=== PATIENT | female | born 1945 | race Caucasian/White ===

== ENCOUNTER 2018-11-07 12:39 | Inpatient (IN) ==
[2018-11-07] MEDS ORDERED: DUONEB 0.5 MG/3 MG ONE (13:11)
[2018-11-07] MEDS ORDERED: TUSSIONEX PENNKINETIC SUSP PO PRN (13:13)
[2018-11-07] MEDS ORDERED: DUONEB 0.5 MG/3 MG NEB ONE (13:15)
[2018-11-07 13:40] LABS: BASOPHILS # (AUTO) 0.1 X10^3/uL (0.0-0.1); BASOPHILS % (AUTO) 0.6 % (0.2-1.0); EOSINOPHILS # (AUTO) 0.1 x10^3/uL (0.0-0.2); EOSINOPHILS % (AUTO) 0.3 % (0.9-2.9); HEMATOCRIT 33.1 % (36.0-47.0); HEMOGLOBIN 10.8 g/dL (12.0-16.0); LYMPHOCYTES # (AUTO) 2.1 X10^3/uL (1.3-2.9); LYMPHOCYTES % (AUTO) 9.9 % (21.0-51.0); MEAN CORPUSCULAR HEMOGLOBIN 28.9 pg (27.0-34.0); MEAN CORPUSCULAR HGB CONC 32.7 g/dL (33.0-35.0); MEAN CORPUSCULAR VOLUME 88.4 fL (80.0-100.0); MEAN PLATELET VOLUME 9.8 fL (7.4-11.0); MONOCYTES % (AUTO) 9.7 % (0.0-13.0); NEUTROPHILS # (AUTO) 16.6 x10^3/uL (2.2-4.8); NEUTROPHILS % (AUTO) 79.5 % (42.0-75.0); PLATELET COUNT 316 X10^3/uL (150.0-450.0); RED BLOOD COUNT 3.74 X10^6/uL (3.5-5.4); RED CELL DISTRIBUTION WIDTH 13.7 % (11.6-16.5); WHITE BLOOD COUNT 20.8 X10^3/uL (3.6-10.0)
--- NOTE | 2018-11-07 13:45 | DR.GENAD ---
HPI Time Seen Time Seen by Provider: 11/07/18 13:38 PCP Primary Care Physician: cesilia Complaint/Symptoms Chief Complaint Doctors Comments: 73 y/o female with dyspnea and cough x 2 weeks. She is wheezing. Chief Complaint:: pt has been short of breath, dizzy, vomiting, chills, for 2 weeks. stated she woke up this morning with right ankle pain Source History Provided: Patient and Family Member Mode of Arrival Mode of Arrival: Wheelchair Timing Onset of Chief Complaint: 10/24/18 PMH PMH Past Medical History: Yes Past Medical History: Asthma, COPD, Diabetes, Dyslipidemia, GERD, Hypertension and Renal Disease Past Surgical History: Yes Surgical History: , Cholecystectomy and Ortho Surgery Family History History of Family Medical Conditions: No Social History Does patient currently use any type of tobacco product: No Have you used tobacco products in the last 12 months: No Type of Tobacco Use: None Does any household member use tobacco: No Alcohol Use: None Do you use any recreational Drugs:: No Lives With: Family Lives Where: Home infectious screening In the last 2 months have you had wt loss of >10#?: NO Have you had fever, night sweats or hemotysis?: No Have you traveled outside the country in the last 6 months?: No Isolation: Standard ROS Review of Systems Constitutional: No Symptoms Reported Eyes: No Symptoms Reported ENTM: No Symptoms Reported Respiratoy: Productive Cough, Short of Breath and Wheezing Cardiovascular: No Symptoms Reported Gastrointestinal/Abdominal: No Symptoms Reported Genitourinary: No Symptoms Reported Neurological: No Symptoms Reported Musculoskeletal: No Symptoms Reported Integumentary: No Symptoms Reported Hematologic/Lymphatic: No Symptoms Reported Endocrine: No Symptoms Reported Psychiatric: No Symptoms Reported PE Vital Signs Vitals: Pulse Rate 106 Respiratory Rate 18 Blood Pressure 142/80 O2 Sat by Pulse Oximetry 100 General Limitations: No Limitations General Appearance: Alert and In No Apparent Distress Head Head Exam: Normal Inspection, Atraumatic and Normocephalic Eyes Eye exam: Normal Appearance and EOMI ENT ENT Exam: Normal Exam, Normal Oropharynx and Mucous Membranes Moist Neck Neck Exam: Normal Inspection, Full ROM and Trachea Midline Chest Chest Inspection: Normal Inspection and Symmetric Chest Wall Rise Respiratory Respiratory Exam: Bilateral: Wheezing, Bilateral: Rhonchi and Bilateral: Decreased Breath Sounds Cardiovascular Cardiovascular Exam: Regular Rate, Normal Rhythm, +S1 and +S2 Abdominal Exam Abdominal Exam: Normal Inspection, Normal Bowel Sounds and Soft Extremities Extremities Exam: Normal Inspection Back Back Exam: Normal Inspection Neurologic Neurological Exam: Alert and Oriented X3 Psychiatric Psychiatric Exam: Normal Affect Skin Skin Exam: Warm, Dry and Normal Color COURSE Reevaluation 1st: Improved Education/Counseling Education/Counseling: Patient, Family, Education and Counseling Educated On: Treatment, Diagnosis, Prognosis and Needs for Follow Up ROR Labs Reviewed Result Diagrams: 11/07/18 13:22 11/07/18 13:22 Laboratory: WBC 20.8 X10^3/uL (3.6-10.0) H 11/07/18 13:22 RBC 3.74 X10^6/uL (3.5-5.4) 11/07/18 13:22 Hgb 10.8 g/dL (12.0-16.0) L 11/07/18 13:22 Hct 33.1 % (36.0-47.0) L 11/07/18 13:22 MCV 88.4 fL (80.0-100.0) 11/07/18 13:22 MCH 28.9 pg (27.0-34.0) 11/07/18 13:22 MCHC 32.7 g/dL (33.0-35.0) L 11/07/18 13:22 RDW 13.7 % (11.6-16.5) 11/07/18 13:22 Plt Count 316 X10^3/uL (150.0-450.0) 11/07/18 13:22 Plt Count Comment Adequate (ADEQUATE) 11/07/18 13:22 MPV 9.8 fL (7.4-11.0) 11/07/18 13:22 Neut % (Auto) 79.5 % (42.0-75.0) H 11/07/18 13:22 Lymph % (Auto) 9.9 % (21.0-51.0) L 11/07/18 13:22 [place] % (Auto) 9.7 % (0.0-13.0) 11/07/18 13:22 Eos % (Auto) 0.3 % (0.9-2.9) L 11/07/18 13:22 Baso % (Auto) 0.6 % (0.2-1.0) 11/07/18 13:22 Neut # (Auto) 16.6 x10^3/uL (2.2-4.8) H 11/07/18 13:22 Lymph # (Auto) 2.1 X10^3/uL (1.3-2.9) 11/07/18 13:22 [place] # (Auto) 2.0 x10^3/uL (0.3-0.8) H 11/07/18 13:22 Eos # (Auto) 0.1 x10^3/uL (0.0-0.2) 11/07/18 13:22 Baso # (Auto) 0.1 X10^3/uL (0.0-0.1) 11/07/18 13:22 Absolute Nucleated RBC 0.0 /100WBC 11/07/18 13:22 Total Counted 100 11/07/18 13:22 Neutrophils % (Manual) 78 % (39-76) H 11/07/18 13:22 Lymphocytes % (Manual) 19 % (13-43) 11/07/18 13:22 Monocytes % (Manual) 3 % (4-9) L 11/07/18 13:22 Plt Morphology Comment Normal (NORMAL) 11/07/18 13:22 RBC Morphology Normal (NORMAL) 11/07/18 13:22 Sample Site Right brachial 11/07/18 15:00 ABG pH 7.580 (7.35-7.45) H* 11/07/18 15:00 ABG pCO2 27.0 mmHg (35.0-45.0) L 11/07/18 15:00 ABG pO2 88.0 mmHg (80.0-100.0) 11/07/18 15:00 ABG HCO3 25.3 mmol/L (22-26) 11/07/18 15:00 ABG O2 Saturation 98.0 % (90-100) 11/07/18 15:00 ABG Base Excess 4.2 mmol/L (-2.0-2.0) H 11/07/18 15:00 Test Na 11/07/18 15:00 A-a Gradient 106.0 mmHg 11/07/18 15:00 FiO2 32.0 11/07/18 15:00 Blood Gas Comments Gilberto well aw 11/07/18 15:00 Sodium 137 mmol/L (136-145) 11/07/18 13:22 Corrected Sodium 140 mmol/L (136-145) 11/07/18 13:22 Potassium 3.7 mmol/L (3.5-5.1) 11/07/18 13:22 Chloride 97 mmol/L (98-107) L 11/07/18 13:22 Carbon Dioxide 26.3 mmol/L (21-32) 11/07/18 13:22 BUN 41 mg/dL (7-18) H 11/07/18 13:22 Creatinine 2.68 mg/dL (0.55-1.02) H 11/07/18 13:22 Est GFR (MDRD) Af Amer 22 (>60) L 11/07/18 13:22 Est GFR (MDRD) Non-Af 19 (>60) L 11/07/18 13:22 Glucose 228 mg/dL (65-99) H 11/07/18 13:22 Calcium 7.7 mg/dL (8.5-10.1) L 11/07/18 13:22 Corrected Calcium 8.8 mg/dL (8.5-10.1) 11/07/18 13:22 Total Bilirubin 0.50 mg/dL (0.2-1.0) 11/07/18 13:22 AST 29 Units/L (15-37) 11/07/18 13:22 ALT 29 Units/L (12-78) 11/07/18 13:22 Alkaline Phosphatase 128 Units/L (46-116) H 11/07/18 13:22 Total Protein 7.4 g/dL (6.4-8.2) 11/07/18 13:22 Albumin 2.6 g/dL (3.4-5.0) L 11/07/18 13:22 Globulin 4.8 g/dL (2.5-4.5) H 11/07/18 13:22 Albumin/Globulin Ratio 0.5 Ratio (1.1-2.1) L 11/07/18 13:22 Other Results Comments: Radiologist read on: 1): CXR- Diffuse interstitial disease with elevated Lt. karlos-diaphragm without other acute cardiopulmonary process. 2): Degenerative spurring and possible small remote avulsion fracture adjacent to the medial malleolus. Diagnosis Discharge Problem: Acute interstitial pneumonia, CKD (chronic kidney disease) stage 4, GFR 15-29 ml/min Leukocytosis Qualifiers: Leukocytosis type: other Qualified Code(s): D72.828 - Other elevated white blood cell count Fracture of malleolus, left ankle, closed Qualifiers: Encounter type: initial encounter Qualified Code(s): S82.892A - Other fracture of left lower leg, initial encounter for closed fracture
[2018-11-07 13:53] LABS: ALBUMIN 2.6 g/dL (3.4-5.0); CALCIUM 7.7 mg/dL (8.5-10.1); CARBON DIOXIDE 26.3 mmol/L (21-32); COR CA(FOR HYPOALB) 8.8 mg/dL (8.5-10.1); CREATININE 2.68 mg/dL (0.55-1.02); TOTAL PROTEIN 7.4 g/dL (6.4-8.2)
--- NOTE | 2018-11-07 13:54 | RAD ---
Exam: Right ankle three views History: 73-year-old female with right ankle pain. Comparison: None Findings: Degenerative spurring is seen along the medial aspect of the medial malleolus. A 2 x 3 mm calcification just distal to the medial malleolus may represent a remote avulsion fracture fragment. However no acute bony abnormality is seen on this exam. Spurring is present along the plantar aspect of the calcaneus. Impression: Degenerative spurring and possible small remote avulsion fracture fragment adjacent to the medial malleolus. However no acute bony abnormality is seen on this exam. Reported By:
[2018-11-07 13:56] LABS: PLATELET MORPHOLOGY COMMENT NORMAL (NORMAL)
--- NOTE | 2018-11-07 14:05 | RAD ---
HISTORY: 73-year-old female with shortness of breath. Study: Frontal view of the chest. Comparison: None. Findings: Study is limited secondary to patient body habitus and excessive quantum mottle. The trachea is midline. The cardiac silhouette is unremarkable with elevation of left hemidiaphragm with prominent interstitium diffusely. No consolidation, effusion or pneumothorax. Soft tissues are unremarkable. Osseous structures are unremarkable. IMPRESSION: 1. Diffuse interstitial disease with elevated left hemidiaphragm without other acute cardiopulmonary process. Correlate clinically for underlying infection. Reported By:
[2018-11-07] MEDS ORDERED: SOLU-Medrol 125 MG VIAL ONE ×2 (14:31→14:39)
[2018-11-07] MEDS ORDERED: SOLU-Medrol 125 MG VIAL IVP ONE (14:52)
[2018-11-07] MEDS ORDERED: XOPENEX 1.25 MG/3 ML NEBULE NEB ONE (14:59)
[2018-11-07 15:05] LABS: ABG BASE EXCESS 4.2 mmol/L (-2.0-2.0); ABG HCO3 25.3 mmol/L (22-26)
[2018-11-07] MEDS ORDERED: PULMICORT NEB TX 0.5 MG ONE (15:08)
[2018-11-07] MEDS: PULMICORT NEB TX 0.5 MG NEB SCH ×2 (15:12→20:50)
[2018-11-07] MEDS ORDERED: NS 1/2 1000 ML IV 1,000 ML ONE (16:16)
[2018-11-07] MEDS ORDERED: LEVAQUIN PREMIX IV 750 MG 750 MG/150 ML BAG IV ONE (16:16)
[2018-11-07] MEDS: NS 1/2 1000 ML IV 1,000 ML IV SCH (16:26)
[2018-11-07] MEDS ORDERED: NORCO 5/325 MG TAB PO ONE (17:37)
[2018-11-07] MEDS ORDERED: NORCO 5/325 MG TAB ONE (17:41)
[2018-11-07] MEDS ORDERED: HumuLIN R SUBCUT PRN (20:24)
[2018-11-07] MEDS ORDERED: NS 100 ML IV + SPIKE MINIBAG* 0 ML ONE (20:28)
[2018-11-07] MEDS: ROBITUSSIN DM PO SCH ×2 (20:45→20:46)
[2018-11-07] MEDS: HumuLIN R SUBCUT PRN (21:28)
[2018-11-07] MEDS ORDERED: ZOSYN VIAL 3.375 GRAMS IV SCH (22:00)
[2018-11-07] MEDS ORDERED: ZOSYN VIAL 2.25 GRAMS 2.25 G in NS 100 ML IV + SPIKE MINIBAG* 100 ML IV SCH (22:00)
[2018-11-08] MEDS ORDERED: XOPENEX 1.25 MG/3 ML NEBULE NEB SCH
[2018-11-08] MEDS: XOPENEX 1.25 MG/3 ML NEBULE NEB SCH ×2 (00:20→05:05)
[2018-11-08] MEDS ORDERED: NS 1/2 1000 ML IV 1,000 ML ONE ×2 (05:26→22:15)
[2018-11-08 05:38] LABS: BASOPHILS % (AUTO) 0.1 % (0.2-1.0); HEMATOCRIT 31.1 % (36.0-47.0); HEMOGLOBIN 10.3 g/dL (12.0-16.0); LYMPHOCYTES # (AUTO) 1.1 X10^3/uL (1.3-2.9); MEAN CORPUSCULAR HEMOGLOBIN 29.6 pg (27.0-34.0); MEAN CORPUSCULAR HGB CONC 33.2 g/dL (33.0-35.0); MEAN CORPUSCULAR VOLUME 89.2 fL (80.0-100.0); MEAN PLATELET VOLUME 9.5 fL (7.4-11.0); MONOCYTES # (AUTO) 0.5 x10^3/uL (0.3-0.8); MONOCYTES % (AUTO) 5.1 % (0.0-13.0); NEUTROPHILS % (AUTO) 84.8 % (42.0-75.0); PLATELET COUNT 244 X10^3/uL (150.0-450.0); RED BLOOD COUNT 3.48 X10^6/uL (3.5-5.4); RED CELL DISTRIBUTION WIDTH 13.3 % (11.6-16.5)
[2018-11-08] MEDS: NS 1/2 1000 ML IV 1,000 ML IV SCH ×2 (05:43→22:17)
[2018-11-08 05:49] LABS: CALCIUM 7.2 mg/dL (8.5-10.1); CARBON DIOXIDE 26.5 mmol/L (21-32); COR CA(FOR HYPOALB) 8.8 mg/dL (8.5-10.1); TOTAL PROTEIN 6.7 g/dL (6.4-8.2)
[2018-11-08 05:50] LABS: WHITE BLOOD COUNT 10.6 X10^3/uL (3.6-10.0)
[2018-11-08] MEDS: HumuLIN R SUBCUT PRN ×2 (05:57→11:50)
[2018-11-08] MEDS: PULMICORT NEB TX 0.5 MG NEB SCH ×2 (08:55→21:00)
[2018-11-08] MEDS: LEVAQUIN PREMIX IV 750 MG 750 MG/150 ML BAG IV SCH (09:44)
[2018-11-08] MEDS: ROBITUSSIN DM PO SCH ×4 (09:44→20:37)
[2018-11-08] MEDS: LOVENOX INJ 100 MG SYR SC SCH (09:45)
[2018-11-08] MEDS: ZOSYN VIAL 3.375 GRAMS 3.375 G in NS 100 ML IV + SPIKE MINIBAG* 100 ML IV SCH ×2 (11:49→20:37)
[2018-11-08] MEDS: ACCUNEB 1.25 MG NEBULE NEB SCH ×4 (12:31→21:00)
[2018-11-08] MEDS ORDERED: LEVAQUIN PREMIX IV 750 MG 750 MG/150 ML BAG IV ONE (15:06)
--- NOTE | 2018-11-08 15:36 | DR.H&P ---
H&P - History & Physical for Day of: H&P Date: 11/07/18 - Chief Complaint Chief Complaint: SOB, COUGH, DIZZINESS, CHILLS, VOMITING, RIGHT ANKLE PAIN - History of Present Illness History of Present Illness: IS A 73 YEAR OLD WHITE FEMALE WHO PRESENTED TO THE OFFICE WITH COMPLAINTS OF SHORTNESS OF BREATH AND COUGH X 2 WEEKS. SHE ALSO REPORTS ASSOCIATED SYMPTOMS OF DIZZINESS, VOMITING, CHILLS, AND RIGHT ANKLE PAIN. EXAMINATION REVEALED SCATTERED WHEEZING TO AUSCULTATION. ON ARRIVAL, VITALS WERE 99.0-112-18-96%-142/80. LABS WERE OBTAINED. ABNORMAL LAB VALUES INCLUDE THE FOLLOWING: WBC 20.8, HGB 10.8, HCT 33.1, CHLORIDE 97, BUN 41, CREATININE 2.68, GLUCOSE 228, CALCIUM 7.7, ALK PHOS 128, ALBUMIN 2.6, GLOBULIN 4.8. ABG OBTAINED AND REVEALED: PH 7.580, PC02 27.0, P02 88.0, HC03 25.3, 02 SATURATION 98.0, BASE EXCESS 4.2. SPUTUM AND BLOOD CULTURES PENDING. CHEST XRAY OBTAINED AND REVEALED: Diffuse interstitial disease with elevated left hemidiaphragm without other acute cardiopulmonary process. Correlate clinically for underlying infection. RIGHT ANKLE XRAY OBTAINED AND REVEALED: Degenerative spurring and possible small remote avulsion fracture fragment adjacent to the medial malleolus. However no acute bony abnormality is seen on this exam. SHE WAS GIVEN A DUONEB X 1, SOLU-MEDROL 125MG IV X 1, XOPENEX TX X 1, AND NORCO 5/325MG PO X 1. SHE WAS ADMITTED FOR FURTHER EVALUATION AND TREATMENT OF PNEUMONIA. SHE WAS STARTED ON LEVAQUIN IV, ZOSYN IV, NS AT 75ML/HR, AND RESPIRATORY TX. WE PLAN TO FOLLOW UP WITH AM LABS AND CHEST XRAY AND CONTINUE TO MONITOR. - Past Medical History Past Medical History: Hypertension, Dyslipidemia, Diabetes, Renal Disease, COPD, Asthma, GERD - Past Surgical History Surgical History: , Cholecystectomy, Ortho Surgery - Family History Family Medical History: Diabetes Mellitus, [place], Coronary Artery Disease, Sudden Cardiac , Hypertension - Social History Does patient currently use any type of tobacco product: No Have you used tobacco products in the last 12 months: No Type of Tobacco Use: None Does any household member use tobacco: No Alcohol Use: None Drug Use: None - Medications Home Medications: michelle Adverse Reaction (Verified 11/07/18 12:40) CONTINUE taking the following medications C,E,zinc,copper [id number] [Ocuvite Adult 50 Plus] 1 tab PO DAILY 11/07/18 [History] atorvastatin 20 mg PO HS 11/07/18 [History] bupropion HCl [Wellbutrin XL] 150 mg PO DAILY 11/07/18 [History] calcium carbonate [Calcium 600] 600 mg PO DAILY 11/07/18 [History] carvedilol [Coreg] 0.5 tab PO BID 11/07/18 [History] chlorthalidone 12.5 mg PO DAILY 11/07/18 [History] clonazepam 1 mg PO HS 11/07/18 [History] enalapril maleate 10 mg PO DAILY 11/07/18 [History] ferrous sulfate 324 mg PO BID 11/07/18 [History] furosemide [Lasix] 20 mg PO PRN PRN 11/07/18 [History] glimepiride 1 mg PO TID 11/07/18 [History] hydrocodone-acetaminophen 1 tab PO QID PRN 11/07/18 [History] mirtazapine 15 mg PO DAILY 11/07/18 [History] montelukast 10 mg PO DAILY 11/07/18 [History] omeprazole magnesium [Prilosec OTC] 40 mg PO DAILY 11/07/18 [History] venlafaxine 75 mg PO DAILY 11/07/18 [History] - Review of Systems Constitutional: Fever, Sweats, Weakness Eyes: No Symptoms Reported ENT: No Symptoms Reported Respiratory: See HPI, Cough, Shortness of Breath, SOB with Excertion, Sputum, Wheezing Cardiovascular: Light Headedness Gastrointestinal: Nausea, Vomiting Genitourinary: No Symptoms Reported Musculoskeletal: See HPI, Other (RIGHT ANKLE PAIN ) Skin: No Symptoms Reported Neurological: Weakness - Physical Exam Vital Signs: Temperature 97.4 F Pulse Rate [Left Brachial] 85 Pulse Rate 85 Respiratory Rate 20 Blood Pressure [Right Arm] 102/53 Blood Pressure [Left Radial 81/63 Artery] Blood Pressure 120/86 O2 Sat by Pulse Oximetry 96 Oriented: Normal Eyes: Normal Ear: Normal Nose: Normal Throat: Normal Respiratory: Wheezes Throughout Cardiovascular: Tachycardia : Normal Auscultation: Bowel Sounds: Normal Palpation: Normal Tenderness: Normal Skin: Normal Musculoskeletal: Right, Ankle, Tender Psychiatric: Normal Mood Description: Calm Affect: Normal Speech Pattern: Clear - Assessment/Plan (1) Acute interstitial pneumonia Status: Acute Plan: IV LEVAQUIN, IV FORTAZ, RESPIRATORY TX, SUPPLEMENTAL OXYGEN, CONTINUE TO MONITOR (2) CKD (chronic kidney disease) stage 4, GFR 15-29 ml/min Status: Acute Plan: 1/2NS AT 75ML/HR, CONTINUE TO MONITOR - Allergies Allergies/Adverse Reactions: Allergies Allergy/AdvReac Type Severity Reaction Status Date / Time michelle AdvReac Verified 11/07/18 12:40
[2018-11-08 15:39] VITALS: BMI 36.4
[2018-11-08] MEDS ORDERED: NORCO 5/325 MG TAB ONE (15:42)
[2018-11-08] MEDS: NORCO 5/325 MG TAB PO PRN ×2 (15:50→22:00)
--- NOTE | 2018-11-08 16:32 | PCM.PROG ---
Progress Note - Progress Note for Day of Date of Exam: 11/08/18 - Subjective Subjective: IS BEING TREATED FOR PNEUMONIA. TODAY, SHE IS ALERT AND ORIENTED, LYING IN BED ON MORNING ROUNDS. SHE CONTINUES WITH COMPLAINTS OF A PRODUCTIVE COUGH AND SHORTNESS OF BREATH. ON EXAMINATION, HEART IS REGULAR IN RATE AND RHYTHM. BILATERAL LUNGS ARE NOTED WITH SCATTERED WHEEZING AND RHONCHI THROUGHOUT. ABDOMEN IS ROUND, SOFT, AND NON-TENDER WITH NORMAL BOWEL SOUNDS NOTED IN ALL QUADRANTS. HER VITALS THIS MORNING ARE 97.9-95-18-98%-118/60. LABS WERE OBTAINED. ABNORMAL LAB VALUES INCLUDE THE FOLLOWING: WBC 10.6 RBC 3.48, HGB 10.3, HCT 31.1, BUN 49, CREATININE 3.00, GLUCOSE 339, CALCIUM 7.2, AST 63, ALBUMIN 2.0, GLOBULIN 4.7. SPUTUM AND BLOOD CULTURES PENDING. SHE IS CURRENTLY RECEIVING IV LEVAQUIN, IV ZOSYN, AND NORMAL SALINE. TODAY, WE WILL OBTAIN AN ECHO, START ALBUTEROL 1.25MG QID, AND CHECK A BNP. OTHERWISE, WE WILL CONTINUE WITH CURRENT PLAN OF CARE. WE WILL FOLLOW UP WITH AM LABS AND CONTINUE TO MONITOR. - Past Medical Family Social History Past Med/Fam/Surg Hx: No changes since H&P Allergies: Allergies michelle Adverse Reaction (Verified 11/07/18 12:40) - Review of Systems ROS: No change since H&P - Vital Signs and I&O's Vital Signs: Temperature 97.8 F Pulse Rate [Left Brachial] 90 Pulse Rate 85 Respiratory Rate 20 Blood Pressure [Right Arm] 94/43 Blood Pressure [Left Radial 81/63 Artery] Blood Pressure 120/86 O2 Sat by Pulse Oximetry 94 Intake and Output: Intake & Output 11/06/18 11/07/18 11/08/18 11/09/18 11:59 11:59 11:59 11:59 Intake Total 50 / 50 Output Total 250 / 250 Balance -200 / -200 - Physical Exam Oriented: Normal Eyes: Normal Ear: Normal Nose: Normal Throat: Normal Respiratory: Generalized, Wheezes, Rhonchi Cardiovascular: Tachycardia : Normal Auscultation: Bowel Sounds: Normal Palpation: Normal Tenderness: Normal Skin: Normal Musculoskeletal: Right, Ankle, Tender Psychiatric: Normal Mood Description: Calm Affect: Normal Speech Pattern: Clear - Laboratory and Diagnostics Result Diagrams: 11/08/18 05:25 11/08/18 05:25 Labs: 11/07/18 13:27 Blood Blood Culture - Preliminary 11/07/18 15:10 Sputum - Expectorated Sputum Sputum Culture - Preliminary 11/07/18 15:10 Sputum - Expectorated Sputum - Final Laboratory WBC 10.6 X10^3/uL (3.6-10.0) H D 11/08/18 05:25 RBC 3.48 X10^6/uL (3.5-5.4) L 11/08/18 05:25 Hgb 10.3 g/dL (12.0-16.0) L 11/08/18 05:25 Hct 31.1 % (36.0-47.0) L 11/08/18 05:25 MCV 89.2 fL (80.0-100.0) 11/08/18 05:25 MCH 29.6 pg (27.0-34.0) 11/08/18 05:25 MCHC 33.2 g/dL (33.0-35.0) 11/08/18 05:25 RDW 13.3 % (11.6-16.5) 11/08/18 05:25 Plt Count 244 X10^3/uL (150.0-450.0) 11/08/18 05:25 Plt Count Comment Adequate (ADEQUATE) 11/07/18 13:22 MPV 9.5 fL (7.4-11.0) 11/08/18 05:25 Neut % (Auto) 84.8 % (42.0-75.0) H 11/08/18 05:25 Lymph % (Auto) 10.0 % (21.0-51.0) L 11/08/18 05:25 [place] % (Auto) 5.1 % (0.0-13.0) 11/08/18 05:25 Eos % (Auto) 0.0 % (0.9-2.9) L 11/08/18 05:25 Baso % (Auto) 0.1 % (0.2-1.0) L 11/08/18 05:25 Neut # (Auto) 9.0 x10^3/uL (2.2-4.8) H 11/08/18 05:25 Lymph # (Auto) 1.1 X10^3/uL (1.3-2.9) L 11/08/18 05:25 [place] # (Auto) 0.5 x10^3/uL (0.3-0.8) 11/08/18 05:25 Eos # (Auto) 0.0 x10^3/uL (0.0-0.2) 11/08/18 05:25 Baso # (Auto) 0.0 X10^3/uL (0.0-0.1) 11/08/18 05:25 Absolute Nucleated RBC 0.0 /100WBC 11/08/18 05:25 Total Counted 100 11/07/18 13:22 Neutrophils % (Manual) 78 % (39-76) H 11/07/18 13:22 Lymphocytes % (Manual) 19 % (13-43) 11/07/18 13:22 Monocytes % (Manual) 3 % (4-9) L 11/07/18 13:22 Plt Morphology Comment Normal (NORMAL) 11/07/18 13:22 RBC Morphology Normal (NORMAL) 11/07/18 13:22 Sample Site Right brachial 11/07/18 15:00 ABG pH 7.580 (7.35-7.45) H* 11/07/18 15:00 ABG pCO2 27.0 mmHg (35.0-45.0) L 11/07/18 15:00 ABG pO2 88.0 mmHg (80.0-100.0) 11/07/18 15:00 ABG HCO3 25.3 mmol/L (22-26) 11/07/18 15:00 ABG O2 Saturation 98.0 % (90-100) 11/07/18 15:00 ABG Base Excess 4.2 mmol/L (-2.0-2.0) H 11/07/18 15:00 Test Na 11/07/18 15:00 A-a Gradient 106.0 mmHg 11/07/18 15:00 FiO2 32.0 11/07/18 15:00 Blood Gas Comments Gilberto well aw 11/07/18 15:00 Sodium 136 mmol/L (136-145) 11/08/18 05:25 Corrected Sodium 142 mmol/L (136-145) 11/08/18 05:25 Potassium 3.7 mmol/L (3.5-5.1) 11/08/18 05:25 Chloride 98 mmol/L (98-107) 11/08/18 05:25 Carbon Dioxide 26.5 mmol/L (21-32) 11/08/18 05:25 BUN 49 mg/dL (7-18) H 11/08/18 05:25 Creatinine 3.00 mg/dL (0.55-1.02) H 11/08/18 05:25 Est GFR (MDRD) Af Amer 20 (>60) L 11/08/18 05:25 Est GFR (MDRD) Non-Af 16 (>60) L 11/08/18 05:25 Glucose 339 mg/dL (65-99) H 11/08/18 05:25 POC Glucose (mg/dL) 343 mg/dL (65-99) H 11/08/18 11:41 Calcium 7.2 mg/dL (8.5-10.1) L 11/08/18 05:25 Corrected Calcium 8.8 mg/dL (8.5-10.1) 11/08/18 05:25 Total Bilirubin 0.20 mg/dL (0.2-1.0) 11/08/18 05:25 AST 63 Units/L (15-37) H 11/08/18 05:25 ALT 35 Units/L (12-78) 11/08/18 05:25 Alkaline Phosphatase 112 Units/L (46-116) 11/08/18 05:25 B-Natriuretic Peptide 113 pg/mL (0-79) H 11/08/18 05:25 Total Protein 6.7 g/dL (6.4-8.2) 11/08/18 05:25 Albumin 2.0 g/dL (3.4-5.0) L 11/08/18 05:25 Globulin 4.7 g/dL (2.5-4.5) H 11/08/18 05:25 Albumin/Globulin Ratio 0.4 Ratio (1.1-2.1) L 11/08/18 05:25 - Plan (1) Acute interstitial pneumonia Status: Acute Plan: IV LEVAQUIN, IV FORTAZ, RESPIRATORY TX, SUPPLEMENTAL OXYGEN, CONTINUE TO MONITOR (2) CKD (chronic kidney disease) stage 4, GFR 15-29 ml/min Status: Acute Plan: 1/2NS AT 75ML/HR, CONTINUE TO MONITOR
[2018-11-08] MEDS ORDERED: SNACK - Diabetic Appropriate PO SCH (20:00)
[2018-11-08] MEDS: SNACK - Diabetic Appropriate PO SCH (20:00)
[2018-11-08] MEDS ORDERED: LEVAQUIN PREMIX IV 500 MG 500 MG/100 ML BAG IV SCH (21:00)
[2018-11-09] MEDS: NORCO 5/325 MG TAB PO PRN ×3 (05:28→22:55)
[2018-11-09 05:36] LABS: BASOPHILS % (AUTO) 0.1 % (0.2-1.0); HEMATOCRIT 30.4 % (36.0-47.0); LYMPHOCYTES # (AUTO) 1.7 X10^3/uL (1.3-2.9); LYMPHOCYTES % (AUTO) 9.3 % (21.0-51.0); MEAN CORPUSCULAR HEMOGLOBIN 29.1 pg (27.0-34.0); MEAN CORPUSCULAR HGB CONC 33.1 g/dL (33.0-35.0); MEAN CORPUSCULAR VOLUME 88.1 fL (80.0-100.0); MEAN PLATELET VOLUME 9.5 fL (7.4-11.0); MONOCYTES # (AUTO) 1.2 x10^3/uL (0.3-0.8); MONOCYTES % (AUTO) 6.4 % (0.0-13.0); NEUTROPHILS # (AUTO) 15.8 x10^3/uL (2.2-4.8); NEUTROPHILS % (AUTO) 84.2 % (42.0-75.0); PLATELET COUNT 280 X10^3/uL (150.0-450.0); RED BLOOD COUNT 3.45 X10^6/uL (3.5-5.4); RED CELL DISTRIBUTION WIDTH 13.6 % (11.6-16.5)
[2018-11-09 05:52] LABS: WHITE BLOOD COUNT 18.8 X10^3/uL (3.6-10.0)
[2018-11-09 05:58] LABS: CALCIUM 7.2 mg/dL (8.5-10.1); CARBON DIOXIDE 25.7 mmol/L (21-32); COR CA(FOR HYPOALB) 8.8 mg/dL (8.5-10.1); CREATININE 3.04 mg/dL (0.55-1.02); TOTAL PROTEIN 6.4 g/dL (6.4-8.2)
--- NOTE | 2018-11-09 08:30 | RAD ---
Examination: Portable AP chest History: SOB Comparison 11/07/2018 Findings: Continued normal heart size with clear lungs. Persistent elevation left diaphragm. No evidence for pneumonia or pneumothorax. Impression: No interval change or acute abnormality compared to 11/07/2018. Reported By:
[2018-11-09] MEDS: PULMICORT NEB TX 0.5 MG NEB SCH ×2 (08:36→20:24)
[2018-11-09] MEDS: ACCUNEB 1.25 MG NEBULE NEB SCH ×4 (08:36→20:24)
[2018-11-09] MEDS ORDERED: C E ZINC COPPER OMEGA3S LUT PO SCH (09:30)
[2018-11-09] MEDS ORDERED: [UNRECOGNIZED DRUG - OTHER] PO SCH (09:30)
[2018-11-09] MEDS ORDERED: CALCIUM CARBONATE 600 MG PO SCH (09:30)
[2018-11-09] MEDS: ZOSYN VIAL 3.375 GRAMS 3.375 G in NS 100 ML IV + SPIKE MINIBAG* 100 ML IV SCH ×2 (09:57→20:42)
[2018-11-09] MEDS: LOVENOX INJ 100 MG SYR SC SCH (09:58)
[2018-11-09] MEDS: ROBITUSSIN DM PO SCH ×4 (09:58→20:41)
[2018-11-09] MEDS: PriLOSEC PO SCH (10:07)
[2018-11-09] MEDS: SINGULAIR TAB 10 MG PO SCH (10:07)
[2018-11-09] MEDS: WELLBUTRIN XL 150 MG (DAILY) PO SCH (10:07)
[2018-11-09] MEDS: EFFEXOR XR 75 MG CAP PO SCH (10:07)
[2018-11-09] MEDS: REMERON PO SCH (10:07)
[2018-11-09] MEDS ORDERED: NS 1/2 1000 ML IV 1,000 ML ONE ×2 (11:44→23:51)
[2018-11-09] MEDS: NS 1/2 1000 ML IV 1,000 ML IV SCH ×3 (11:59→23:53)
[2018-11-09] MEDS: LIPITOR TAB 20 MG PO SCH (20:41)
[2018-11-09] MEDS: KLONOPIN TAB 1 MG PO SCH (20:41)
[2018-11-09] MEDS ORDERED: LEVAQUIN PREMIX IV 250 MG 250 MG/50 ML BAG IV SCH (21:00)
[2018-11-09] MEDS: SNACK - Diabetic Appropriate PO SCH (21:25)
--- NOTE | 2018-11-09 21:42 | PCM.PROG ---
Progress Note - Progress Note for Day of Date of Exam: 11/09/18 - Subjective Subjective: IS BEING TREATED FOR PNEUMONIA. TODAY, SHE IS ALERT AND ORIENTED, LYING IN BED ON MORNING ROUNDS. SHE CONTINUES WITH COMPLAINTS OF A PRODUCTIVE COUGH AND SHORTNESS OF BREATH, BUT REPORTS IMPROVEMENT SINCE YESTERDAY. ON EXAMINATION, HEART IS REGULAR IN RATE AND RHYTHM. BILATERAL LUNGS ARE NOTED WITH SCATTERED WHEEZING AND RHONCHI THROUGHOUT. ABDOMEN IS ROUND, SOFT, AND NON-TENDER WITH NORMAL BOWEL SOUNDS NOTED IN ALL QUADRANTS. HER VITALS THIS MORNING ARE 97.9-82-18-97%-104/53. LABS WERE OBTAINED. ABNORMAL LAB VALUES INCLUDE THE FOLLOWING: WBC 18.8, RBC 3.45, HGB 10.0, HCT 30.4, BUN 60, CREATININE 3.04, GLUCOSE 167, CALCIUM 7.2, AST 70, ALBUMIN 2.0. SPUTUM AND BLOOD CULTURES PENDING. SHE IS CURRENTLY RECEIVING IV LEVAQUIN, IV ZOSYN, AND NORMAL SALINE. WE WILL CONTINUE WITH CURRENT PLAN OF CARE TODAY. OTHERWISE, WE WILL FOLLOW UP WITH AM LABS AND CONTINUE TO MONITOR. - Past Medical Family Social History Past Med/Fam/Surg Hx: No changes since H&P Allergies: Allergies michelle Adverse Reaction (Verified 11/07/18 12:40) - Review of Systems ROS: No change since H&P - Vital Signs and I&O's Vital Signs: Temperature 98.2 F Pulse Rate [Left Brachial] 96 Pulse Rate 89 Respiratory Rate 22 Blood Pressure [Right Arm] 120/59 Blood Pressure [Left Radial 81/63 Artery] Blood Pressure 120/86 O2 Sat by Pulse Oximetry 99 Intake and Output: Intake & Output 11/07/18 11/08/18 11/09/18 11/10/18 11:59 11:59 11:59 11:59 Intake Total 50 / 50 780 / 780 480 / 480 Output Total 250 / 250 Balance -200 / -200 780 / 780 480 / 480 - Physical Exam Oriented: Normal Eyes: Normal Ear: Normal Nose: Normal Throat: Normal Respiratory: Generalized, Wheezes, Rhonchi Cardiovascular: Tachycardia : Normal Auscultation: Bowel Sounds: Normal Palpation: Normal Tenderness: Normal Skin: Normal Musculoskeletal: Right, Ankle, Tender Psychiatric: Normal Mood Description: Calm Affect: Normal Speech Pattern: Clear, Appropriate - Laboratory and Diagnostics Result Diagrams: 11/09/18 05:01 11/09/18 05:01 Labs: 11/07/18 13:27 Blood Blood Culture - Final 11/07/18 15:10 Sputum - Expectorated Sputum Sputum Culture - Final 11/07/18 15:10 Sputum - Expectorated Sputum - Final 11/07/18 13:22 Blood Blood Culture - Preliminary Laboratory WBC 18.8 X10^3/uL (3.6-10.0) H D 11/09/18 05:01 RBC 3.45 X10^6/uL (3.5-5.4) L 11/09/18 05:01 Hgb 10.0 g/dL (12.0-16.0) L 11/09/18 05:01 Hct 30.4 % (36.0-47.0) L 11/09/18 05:01 MCV 88.1 fL (80.0-100.0) 11/09/18 05:01 MCH 29.1 pg (27.0-34.0) 11/09/18 05:01 MCHC 33.1 g/dL (33.0-35.0) 11/09/18 05:01 RDW 13.6 % (11.6-16.5) 11/09/18 05:01 Plt Count 280 X10^3/uL (150.0-450.0) 11/09/18 05:01 Plt Count Comment Adequate (ADEQUATE) 11/07/18 13:22 MPV 9.5 fL (7.4-11.0) 11/09/18 05:01 Neut % (Auto) 84.2 % (42.0-75.0) H 11/09/18 05:01 Lymph % (Auto) 9.3 % (21.0-51.0) L 11/09/18 05:01 [place] % (Auto) 6.4 % (0.0-13.0) 11/09/18 05:01 Eos % (Auto) 0.0 % (0.9-2.9) L 11/09/18 05:01 Baso % (Auto) 0.1 % (0.2-1.0) L 11/09/18 05:01 Neut # (Auto) 15.8 x10^3/uL (2.2-4.8) H 11/09/18 05:01 Lymph # (Auto) 1.7 X10^3/uL (1.3-2.9) 11/09/18 05:01 [place] # (Auto) 1.2 x10^3/uL (0.3-0.8) H 11/09/18 05:01 Eos # (Auto) 0.0 x10^3/uL (0.0-0.2) 11/09/18 05:01 Baso # (Auto) 0.0 X10^3/uL (0.0-0.1) 11/09/18 05:01 Absolute Nucleated RBC 0.0 /100WBC 11/09/18 05:01 Total Counted 100 11/07/18 13:22 Neutrophils % (Manual) 78 % (39-76) H 11/07/18 13:22 Lymphocytes % (Manual) 19 % (13-43) 11/07/18 13:22 Monocytes % (Manual) 3 % (4-9) L 11/07/18 13:22 Plt Morphology Comment Normal (NORMAL) 11/07/18 13:22 RBC Morphology Normal (NORMAL) 11/07/18 13:22 Sample Site Right brachial 11/07/18 15:00 ABG pH 7.580 (7.35-7.45) H* 11/07/18 15:00 ABG pCO2 27.0 mmHg (35.0-45.0) L 11/07/18 15:00 ABG pO2 88.0 mmHg (80.0-100.0) 11/07/18 15:00 ABG HCO3 25.3 mmol/L (22-26) 11/07/18 15:00 ABG O2 Saturation 98.0 % (90-100) 11/07/18 15:00 ABG Base Excess 4.2 mmol/L (-2.0-2.0) H 11/07/18 15:00 Test Na 11/07/18 15:00 A-a Gradient 106.0 mmHg 11/07/18 15:00 FiO2 32.0 11/07/18 15:00 Blood Gas Comments Gilberto well aw 11/07/18 15:00 Sodium 138 mmol/L (136-145) 11/09/18 05:01 Corrected Sodium 140 mmol/L (136-145) 11/09/18 05:01 Potassium 3.7 mmol/L (3.5-5.1) 11/09/18 05:01 Chloride 101 mmol/L (98-107) 11/09/18 05:01 Carbon Dioxide 25.7 mmol/L (21-32) 11/09/18 05:01 BUN 60 mg/dL (7-18) H 11/09/18 05:01 Creatinine 3.04 mg/dL (0.55-1.02) H 11/09/18 05:01 Est GFR (MDRD) Af Amer 19 (>60) L 11/09/18 05:01 Est GFR (MDRD) Non-Af 16 (>60) L 11/09/18 05:01 Glucose 167 mg/dL (65-99) H 11/09/18 05:01 POC Glucose (mg/dL) 148 mg/dL (65-99) H 11/09/18 20:12 Calcium 7.2 mg/dL (8.5-10.1) L 11/09/18 05:01 Corrected Calcium 8.8 mg/dL (8.5-10.1) 11/09/18 05:01 Total Bilirubin 0.20 mg/dL (0.2-1.0) 11/09/18 05:01 AST 70 Units/L (15-37) H 11/09/18 05:01 ALT 48 Units/L (12-78) 11/09/18 05:01 Alkaline Phosphatase 96 Units/L (46-116) 11/09/18 05:01 B-Natriuretic Peptide 113 pg/mL (0-79) H 11/08/18 05:25 Total Protein 6.4 g/dL (6.4-8.2) 11/09/18 05:01 Albumin 2.0 g/dL (3.4-5.0) L 11/09/18 05:01 Globulin 4.4 g/dL (2.5-4.5) 11/09/18 05:01 Albumin/Globulin Ratio 0.5 Ratio (1.1-2.1) L 11/09/18 05:01 - Plan (1) Acute interstitial pneumonia Status: Acute Plan: IV LEVAQUIN, IV FORTAZ, RESPIRATORY TX, SUPPLEMENTAL OXYGEN, CONTINUE TO M ONITOR (2) CKD (chronic kidney disease) stage 4, GFR 15-29 ml/min Status: Acute Plan: 1/2NS AT 75ML/HR, CONTINUE TO MONITOR
--- NOTE | 2018-11-10 06:00 | RAD ---
History: Shortness of breath Study: Portable AP chest Comparison: Yesterday Findings: The heart size is normal. There is chronic mild elevation of the left hemidiaphragm. The lungs are grossly clear. There is no edema or effusion. No significant bony abnormality is demonstrated. Impression: No acute cardiopulmonary disease Reported By:
[2018-11-10 06:26] LABS: BASOPHILS % (AUTO) 0.3 % (0.2-1.0); EOSINOPHILS # (AUTO) 0.1 x10^3/uL (0.0-0.2); EOSINOPHILS % (AUTO) 0.9 % (0.9-2.9); HEMATOCRIT 32.2 % (36.0-47.0); HEMOGLOBIN 10.3 g/dL (12.0-16.0); LYMPHOCYTES # (AUTO) 2.5 X10^3/uL (1.3-2.9); LYMPHOCYTES % (AUTO) 25.2 % (21.0-51.0); MEAN CORPUSCULAR HGB CONC 32.1 g/dL (33.0-35.0); MEAN CORPUSCULAR VOLUME 90.3 fL (80.0-100.0); MEAN PLATELET VOLUME 9.4 fL (7.4-11.0); MONOCYTES # (AUTO) 1.3 x10^3/uL (0.3-0.8); MONOCYTES % (AUTO) 13.7 % (0.0-13.0); NEUTROPHILS # (AUTO) 5.9 x10^3/uL (2.2-4.8); NEUTROPHILS % (AUTO) 59.9 % (42.0-75.0); PLATELET COUNT 288 X10^3/uL (150.0-450.0); RED BLOOD COUNT 3.56 X10^6/uL (3.5-5.4); RED CELL DISTRIBUTION WIDTH 13.8 % (11.6-16.5); WHITE BLOOD COUNT 9.8 X10^3/uL (3.6-10.0)
[2018-11-10 06:31] LABS: ALANINE AMINOTRANSFERASE 50 Units/L (12-78); ALBUMIN 1.9 g/dL (3.4-5.0); ALKALINE PHOSPHATASE 93 Units/L (46-116); ASPARTATE AMINO TRANSFERASE 59 Units/L (15-37); BLOOD UREA NITROGEN 51 mg/dL (7-18); CALCIUM 7.3 mg/dL (8.5-10.1); CARBON DIOXIDE 25.1 mmol/L (21-32); CHLORIDE 108 mmol/L (98-107); CREATININE 2.42 mg/dL (0.55-1.02); SODIUM 142 mmol/L (136-145); TOTAL PROTEIN 6.1 g/dL (6.4-8.2); eGFR NON BLACK RACES 21 (>60)
[2018-11-10] MEDS: PULMICORT NEB TX 0.5 MG NEB SCH ×2 (08:31→20:10)
[2018-11-10] MEDS: ACCUNEB 1.25 MG NEBULE NEB SCH ×4 (08:31→20:10)
[2018-11-10] MEDS: LEVAQUIN PREMIX IV 750 MG 750 MG/150 ML BAG IV SCH ×2 (08:52→10:34)
[2018-11-10] MEDS: PriLOSEC PO SCH (08:52)
[2018-11-10] MEDS: EFFEXOR XR 75 MG CAP PO SCH (08:52)
[2018-11-10] MEDS: WELLBUTRIN XL 150 MG (DAILY) PO SCH (08:53)
[2018-11-10] MEDS: SINGULAIR TAB 10 MG PO SCH (08:53)
[2018-11-10] MEDS: REMERON PO SCH (08:53)
[2018-11-10] MEDS: LOVENOX INJ 100 MG SYR SC SCH (08:54)
[2018-11-10] MEDS: ROBITUSSIN DM PO SCH ×4 (08:54→20:38)
[2018-11-10] MEDS: NORCO 5/325 MG TAB PO PRN ×2 (08:54→16:59)
[2018-11-10] MEDS: ZOVIRAX TOP SCH ×3 (10:50→20:39)
[2018-11-10] MEDS: ZOSYN VIAL 3.375 GRAMS 3.375 G in NS 100 ML IV + SPIKE MINIBAG* 100 ML IV SCH ×2 (10:51→20:39)
--- NOTE | 2018-11-10 13:45 | PCM.PROG ---
Progress Note - Progress Note for Day of Date of Exam: 11/10/18 - Subjective Subjective: IS BEING TREATED FOR PNEUMONIA. TODAY, SHE IS ALERT AND ORIENTED, LYING IN BED ON MORNING ROUNDS. SHE CONTINUES WITH COMPLAINTS OF A PRODUCTIVE COUGH AND SHORTNESS OF BREATH, BUT REPORTS IMPROVEMENT SINCE YESTERDAY. SHE ALSO COMPLAINS OF A NEW COLD SORE TO TOP LIP. ON EXAMINATION, HEART IS REGULAR IN RATE AND RHYTHM. BILATERAL LUNGS ARE NOTED WITH SCATTERED WHEEZING AND RHONCHI THROUGHOUT. ABDOMEN IS ROUND, SOFT, AND NON-TENDER WITH NORMAL BOWEL SOUNDS NOTED IN ALL QUADRANTS. HER VITALS THIS MORNING ARE 97.8-87-18-100%-109/47. LABS WERE OBTAINED. ABNORMAL LAB VALUES INCLUDE THE FOLLOWING: HGB 10.3, HCT 32.2, CHLORIDE 108, BUN 51, CREATININE 2.42, GLUCOSE 109, CALCIUM 7.3, AST 59, TOTAL PROTEIN 6.1, ALBUMIN 1.9. SPUTUM AND BLOOD CULTURES PENDING. SHE IS CURRENTLY RECEIVING IV LEVAQUIN, IV ZOSYN, AND NORMAL SALINE. WE WILL CONTINUE WITH CURRENT PLAN OF CARE TODAY. OTHERWISE, WE WILL FOLLOW UP WITH AM LABS AND CONTINUE TO MONITOR. - Past Medical Family Social History Past Med/Fam/Surg Hx: No changes since H&P Allergies: Allergies michelle Adverse Reaction (Verified 11/07/18 12:40) - Review of Systems ROS: No change since H&P - Vital Signs and I&O's Vital Signs: Temperature 97.8 F Pulse Rate [Left Brachial] 87 Pulse Rate 88 Respiratory Rate 22 Blood Pressure [Right Arm] 109/47 Blood Pressure [Left Radial 81/63 Artery] Blood Pressure 120/86 O2 Sat by Pulse Oximetry 100 Intake and Output: Intake & Output 11/08/18 11/09/18 11/10/18 11/11/18 11:59 11:59 11:59 11:59 Intake Total 50 / 50 780 / 780 1380 / 1380 Output Total 250 / 250 Balance -200 / -200 780 / 780 1380 / 1380 - Physical Exam Oriented: Normal Eyes: Normal Ear: Normal Nose: Normal Throat: Normal Respiratory: Generalized, Wheezes, Rhonchi Cardiovascular: Tachycardia : Normal Auscultation: Bowel Sounds: Normal Palpation: Normal Tenderness: Normal Skin: Normal Musculoskeletal: Right, Ankle, Tender Psychiatric: Normal Mood Description: Calm Affect: Normal Speech Pattern: Clear, Appropriate - Laboratory and Diagnostics Result Diagrams: 11/10/18 05:17 11/10/18 05:17 Labs: 11/07/18 13:27 Blood Blood Culture - Final 11/07/18 15:10 Sputum - Expectorated Sputum Sputum Culture - Final 11/07/18 15:10 Sputum - Expectorated Sputum - Final 11/07/18 13:22 Blood Blood Culture - Preliminary Laboratory WBC 9.8 X10^3/uL (3.6-10.0) D 11/10/18 05:17 RBC 3.56 X10^6/uL (3.5-5.4) 11/10/18 05:17 Hgb 10.3 g/dL (12.0-16.0) L 11/10/18 05:17 Hct 32.2 % (36.0-47.0) L 11/10/18 05:17 MCV 90.3 fL (80.0-100.0) 11/10/18 05:17 MCH 29.0 pg (27.0-34.0) 11/10/18 05:17 MCHC 32.1 g/dL (33.0-35.0) L 11/10/18 05:17 RDW 13.8 % (11.6-16.5) 11/10/18 05:17 Plt Count 288 X10^3/uL (150.0-450.0) 11/10/18 05:17 Plt Count Comment Adequate (ADEQUATE) 11/07/18 13:22 MPV 9.4 fL (7.4-11.0) 11/10/18 05:17 Neut % (Auto) 59.9 % (42.0-75.0) 11/10/18 05:17 Lymph % (Auto) 25.2 % (21.0-51.0) 11/10/18 05:17 [place] % (Auto) 13.7 % (0.0-13.0) H 11/10/18 05:17 Eos % (Auto) 0.9 % (0.9-2.9) 11/10/18 05:17 Baso % (Auto) 0.3 % (0.2-1.0) 11/10/18 05:17 Neut # (Auto) 5.9 x10^3/uL (2.2-4.8) H 11/10/18 05:17 Lymph # (Auto) 2.5 X10^3/uL (1.3-2.9) 11/10/18 05:17 [place] # (Auto) 1.3 x10^3/uL (0.3-0.8) H 11/10/18 05:17 Eos # (Auto) 0.1 x10^3/uL (0.0-0.2) 11/10/18 05:17 Baso # (Auto) 0.0 X10^3/uL (0.0-0.1) 11/10/18 05:17 Absolute Nucleated RBC 0.0 /100WBC 11/10/18 05:17 Total Counted 100 11/07/18 13:22 Neutrophils % (Manual) 78 % (39-76) H 11/07/18 13:22 Lymphocytes % (Manual) 19 % (13-43) 11/07/18 13:22 Monocytes % (Manual) 3 % (4-9) L 11/07/18 13:22 Plt Morphology Comment Normal (NORMAL) 11/07/18 13:22 RBC Morphology Normal (NORMAL) 11/07/18 13:22 Sample Site Right brachial 11/07/18 15:00 ABG pH 7.580 (7.35-7.45) H* 11/07/18 15:00 ABG pCO2 27.0 mmHg (35.0-45.0) L 11/07/18 15:00 ABG pO2 88.0 mmHg (80.0-100.0) 11/07/18 15:00 ABG HCO3 25.3 mmol/L (22-26) 11/07/18 15:00 ABG O2 Saturation 98.0 % (90-100) 11/07/18 15:00 ABG Base Excess 4.2 mmol/L (-2.0-2.0) H 11/07/18 15:00 Test Na 11/07/18 15:00 A-a Gradient 106.0 mmHg 11/07/18 15:00 FiO2 32.0 11/07/18 15:00 Blood Gas Comments Gilberto well aw 11/07/18 15:00 Sodium 142 mmol/L (136-145) 11/10/18 05:17 Corrected Sodium TNP 11/10/18 05:17 Potassium 3.9 mmol/L (3.5-5.1) 11/10/18 05:17 Chloride 108 mmol/L (98-107) H 11/10/18 05:17 Carbon Dioxide 25.1 mmol/L (21-32) 11/10/18 05:17 BUN 51 mg/dL (7-18) H 11/10/18 05:17 Creatinine 2.42 mg/dL (0.55-1.02) H 11/10/18 05:17 Est GFR (MDRD) Af Amer 25 (>60) L 11/10/18 05:17 Est GFR (MDRD) Non-Af 21 (>60) L 11/10/18 05:17 Glucose 109 mg/dL (65-99) H 11/10/18 05:17 POC Glucose (mg/dL) 123 mg/dL (65-99) H 11/10/18 10:57 Calcium 7.3 mg/dL (8.5-10.1) L 11/10/18 05:17 Corrected Calcium 9.0 mg/dL (8.5-10.1) 11/10/18 05:17 Total Bilirubin 0.20 mg/dL (0.2-1.0) 11/10/18 05:17 AST 59 Units/L (15-37) H 11/10/18 05:17 ALT 50 Units/L (12-78) 11/10/18 05:17 Alkaline Phosphatase 93 Units/L (46-116) 11/10/18 05:17 B-Natriuretic Peptide 113 pg/mL (0-79) H 11/08/18 05:25 Total Protein 6.1 g/dL (6.4-8.2) L 11/10/18 05:17 Albumin 1.9 g/dL (3.4-5.0) L 11/10/18 05:17 Globulin 4.2 g/dL (2.5-4.5) 11/10/18 05:17 Albumin/Globulin Ratio 0.5 Ratio (1.1-2.1) L 11/10/18 05:17 - Plan (1) Acute interstitial pneumonia Status: Acute Plan: IV LEVAQUIN, IV FORTAZ, RESPIRATORY TX, SUPPLEMENTAL OXYGEN, CONTINUE TO MONITOR (2) CKD (chronic kidney disease) stage 4, GFR 15-29 ml/min Status: Acute Plan: 1/2NS AT 75ML/HR, CONTINUE TO MONITOR (3) Herpes simplex type 1 infection Status: Acute Plan: ACYCLOVIR TOPICAL OINTMENT Q6H, CONTINUE TO MONITOR
[2018-11-10] MEDS ORDERED: NS 1/2 1000 ML IV 1,000 ML ONE (16:49)
[2018-11-10] MEDS: NS 1/2 1000 ML IV 1,000 ML IV SCH (16:53)
[2018-11-10] MEDS: SNACK - Diabetic Appropriate PO SCH (20:38)
[2018-11-10] MEDS: KLONOPIN TAB 1 MG PO SCH (20:38)
[2018-11-10] MEDS: LIPITOR TAB 20 MG PO SCH (20:39)
[2018-11-11] MEDS: NORCO 5/325 MG TAB PO PRN ×3 (00:28→19:11)
[2018-11-11] MEDS: NS 1/2 1000 ML IV 1,000 ML IV SCH ×2 (02:30→16:30)
[2018-11-11] MEDS ORDERED: NS 1/2 1000 ML IV 1,000 ML ONE ×2 (03:00→16:11)
[2018-11-11] MEDS: ZOVIRAX TOP SCH ×4 (03:30→20:30)
[2018-11-11 05:38] LABS: ALBUMIN 1.9 g/dL (3.4-5.0); CALCIUM 7.4 mg/dL (8.5-10.1); CARBON DIOXIDE 28.6 mmol/L (21-32); COR CA(FOR HYPOALB) 9.1 mg/dL (8.5-10.1); CREATININE 2.23 mg/dL (0.55-1.02); TOTAL PROTEIN 5.9 g/dL (6.4-8.2)
[2018-11-11 06:15] LABS: BASOPHILS % (AUTO) 0.4 % (0.2-1.0); EOSINOPHILS # (AUTO) 0.1 x10^3/uL (0.0-0.2); EOSINOPHILS % (AUTO) 1.3 % (0.9-2.9); HEMATOCRIT 29.4 % (36.0-47.0); HEMOGLOBIN 9.7 g/dL (12.0-16.0); LYMPHOCYTES # (AUTO) 2.1 X10^3/uL (1.3-2.9); LYMPHOCYTES % (AUTO) 22.3 % (21.0-51.0); MEAN CORPUSCULAR HEMOGLOBIN 29.2 pg (27.0-34.0); MEAN CORPUSCULAR VOLUME 88.5 fL (80.0-100.0); MONOCYTES # (AUTO) 1.4 x10^3/uL (0.3-0.8); MONOCYTES % (AUTO) 14.4 % (0.0-13.0); NEUTROPHILS # (AUTO) 5.9 x10^3/uL (2.2-4.8); NEUTROPHILS % (AUTO) 61.6 % (42.0-75.0); PLATELET COUNT 270 X10^3/uL (150.0-450.0); RED BLOOD COUNT 3.32 X10^6/uL (3.5-5.4); RED CELL DISTRIBUTION WIDTH 13.7 % (11.6-16.5); WHITE BLOOD COUNT 9.6 X10^3/uL (3.6-10.0)
--- NOTE | 2018-11-11 06:30 | RAD ---
History: Shortness of breath Study: Portable AP chest Comparison: Yesterday Findings: The heart size is normal. There is chronic elevation of the left hemidiaphragm. The lungs are clear. There is no edema or effusion. Impression: No acute cardiopulmonary disease Reported By:
[2018-11-11] MEDS: PULMICORT NEB TX 0.5 MG NEB SCH ×2 (09:14→20:55)
[2018-11-11] MEDS: ACCUNEB 1.25 MG NEBULE NEB SCH ×4 (09:14→20:55)
[2018-11-11] MEDS: LOVENOX INJ 100 MG SYR SC SCH (09:54)
[2018-11-11] MEDS: ROBITUSSIN DM PO SCH ×4 (09:55→20:30)
[2018-11-11] MEDS: EFFEXOR XR 75 MG CAP PO SCH (09:56)
[2018-11-11] MEDS: PriLOSEC PO SCH (09:56)
[2018-11-11] MEDS: ZOSYN VIAL 3.375 GRAMS 3.375 G in NS 100 ML IV + SPIKE MINIBAG* 100 ML IV SCH ×2 (09:58→20:30)
[2018-11-11] MEDS: REMERON PO SCH (09:58)
[2018-11-11] MEDS: SINGULAIR TAB 10 MG PO SCH (09:58)
[2018-11-11] MEDS: WELLBUTRIN XL 150 MG (DAILY) PO SCH (10:00)
[2018-11-11] MEDS: NIX CREME RINSE EXT SCH (10:15)
[2018-11-11] MEDS ORDERED: XYLOCAINE VISCOUS TOP PRN (12:27)
--- NOTE | 2018-11-11 20:04 | PCM.PROG ---
Progress Note - Progress Note for Day of Date of Exam: 11/11/18 - Subjective Subjective: IS BEING TREATED FOR PNEUMONIA. TODAY, SHE IS ALERT AND ORIENTED, LYING IN BED ON MORNING ROUNDS. SHE CONTINUES WITH COMPLAINTS OF A PRODUCTIVE COUGH AND SHORTNESS OF BREATH, BUT CONTINUES TO REPORT IMPROVEMENT. ON EXAMINATION, HEART IS REGULAR IN RATE AND RHYTHM. BILATERAL LUNGS ARE NOTED WITH SCATTERED WHEEZING AND RHONCHI THROUGHOUT. ABDOMEN IS ROUND, SOFT, AND NON- TENDER WITH NORMAL BOWEL SOUNDS NOTED IN ALL QUADRANTS. HER VITALS THIS MORNING ARE 98.1-94-18-100%-126/56. LABS WERE OBTAINED. ABNORMAL LAB VALUES INCLUDE THE FOLLOWING: RBC 3.32, HGB 9.7, HCT 29.4, BUN 36, CREATININE 2.23, GLUCOSE 131, CALCIUM 7.4, AST 61, ALK PHOS 126, TOTAL PROTEIN 5.9, ALBUMIN 1.9. SHE IS CURRENTLY RECEIVING IV LEVAQUIN, IV ZOSYN, NORMAL SALINE, ACYCLOVIR OINTMENT, AND HOME MEDS WERE CONTINUED. WE WILL CONTINUE WITH CURRENT PLAN OF CARE TODAY. OTHERWISE, WE WILL FOLLOW UP WITH AM LABS AND CONTINUE TO MONITOR. - Past Medical Family Social History Past Med/Fam/Surg Hx: No changes since H&P Allergies: Allergies michelle Adverse Reaction (Verified 11/07/18 12:40) - Review of Systems ROS: No change since H&P - Vital Signs and I&O's Vital Signs: Temperature 98.4 F Pulse Rate [Left Brachial] 133 Pulse Rate 89 Respiratory Rate 20 Blood Pressure [Right Arm] 160/98 Blood Pressure [Left Radial 81/63 Artery] Blood Pressure 120/86 O2 Sat by Pulse Oximetry 96 Intake and Output: Intake & Output 11/09/18 11/10/18 11/11/18 11/12/18 11:59 11:59 11:59 11:59 Intake Total 780 / 780 1380 / 1380 3000 / 3000 480 / 480 Balance 780 / 780 1380 / 1380 3000 / 3000 480 / 480 - Physical Exam Oriented: Normal Eyes: Normal Ear: Normal Nose: Normal Throat: Normal Respiratory: Generalized, Wheezes, Rhonchi Cardiovascular: Tachycardia : Normal Auscultation: Bowel Sounds: Normal Tenderness: Normal Skin: Normal Musculoskeletal: Right, Ankle, Tender Psychiatric: Normal Mood Description: Calm Affect: Normal Speech Pattern: Clear, Appropriate - Laboratory and Diagnostics Result Diagrams: 11/11/18 05:06 11/11/18 05:06 Labs: 11/09/18 12:15 Blood Blood Culture - Preliminary 11/09/18 12:10 Blood Blood Culture - Preliminary 11/07/18 13:27 Blood Blood Culture - Final 11/07/18 15:10 Sputum - Expectorated Sputum Sputum Culture - Final 11/07/18 15:10 Sputum - Expectorated Sputum - Final 11/07/18 13:22 Blood Blood Culture - Preliminary Laboratory WBC 9.6 X10^3/uL (3.6-10.0) 11/11/18 05:06 RBC 3.32 X10^6/uL (3.5-5.4) L 11/11/18 05:06 Hgb 9.7 g/dL (12.0-16.0) L 11/11/18 05:06 Hct 29.4 % (36.0-47.0) L 11/11/18 05:06 MCV 88.5 fL (80.0-100.0) 11/11/18 05:06 MCH 29.2 pg (27.0-34.0) 11/11/18 05:06 MCHC 33.0 g/dL (33.0-35.0) 11/11/18 05:06 RDW 13.7 % (11.6-16.5) 11/11/18 05:06 Plt Count 270 X10^3/uL (150.0-450.0) 11/11/18 05:06 Plt Count Comment Adequate (ADEQUATE) 11/07/18 13:22 MPV 9.0 fL (7.4-11.0) 11/11/18 05:06 Neut % (Auto) 61.6 % (42.0-75.0) 11/11/18 05:06 Lymph % (Auto) 22.3 % (21.0-51.0) 11/11/18 05:06 [place] % (Auto) 14.4 % (0.0-13.0) H 11/11/18 05:06 Eos % (Auto) 1.3 % (0.9-2.9) 11/11/18 05:06 Baso % (Auto) 0.4 % (0.2-1.0) 11/11/18 05:06 Neut # (Auto) 5.9 x10^3/uL (2.2-4.8) H 11/11/18 05:06 Lymph # (Auto) 2.1 X10^3/uL (1.3-2.9) 11/11/18 05:06 [place] # (Auto) 1.4 x10^3/uL (0.3-0.8) H 11/11/18 05:06 Eos # (Auto) 0.1 x10^3/uL (0.0-0.2) 11/11/18 05:06 Baso # (Auto) 0.0 X10^3/uL (0.0-0.1) 11/11/18 05:06 Absolute Nucleated RBC 0.0 /100WBC 11/11/18 05:06 Total Counted 100 11/07/18 13:22 Neutrophils % (Manual) 78 % (39-76) H 11/07/18 13:22 Lymphocytes % (Manual) 19 % (13-43) 11/07/18 13:22 Monocytes % (Manual) 3 % (4-9) L 11/07/18 13:22 Plt Morphology Comment Normal (NORMAL) 11/07/18 13:22 RBC Morphology Normal (NORMAL) 11/07/18 13:22 Sample Site Right brachial 11/07/18 15:00 ABG pH 7.580 (7.35-7.45) H* 11/07/18 15:00 ABG pCO2 27.0 mmHg (35.0-45.0) L 11/07/18 15:00 ABG pO2 88.0 mmHg (80.0-100.0) 11/07/18 15:00 ABG HCO3 25.3 mmol/L (22-26) 11/07/18 15:00 ABG O2 Saturation 98.0 % (90-100) 11/07/18 15:00 ABG Base Excess 4.2 mmol/L (-2.0-2.0) H 11/07/18 15:00 Test Na 11/07/18 15:00 A-a Gradient 106.0 mmHg 11/07/18 15:00 FiO2 32.0 11/07/18 15:00 Blood Gas Comments Gilberto well aw 11/07/18 15:00 Sodium 141 mmol/L (136-145) 11/11/18 05:06 Corrected Sodium 142 mmol/L (136-145) 11/11/18 05:06 Potassium 4.4 mmol/L (3.5-5.1) 11/11/18 05:06 Chloride 106 mmol/L (98-107) 11/11/18 05:06 Carbon Dioxide 28.6 mmol/L (21-32) 11/11/18 05:06 BUN 36 mg/dL (7-18) H 11/11/18 05:06 Creatinine 2.23 mg/dL (0.55-1.02) H 11/11/18 05:06 Est GFR (MDRD) Af Amer 28 (>60) L 11/11/18 05:06 Est GFR (MDRD) Non-Af 23 (>60) L 11/11/18 05:06 Glucose 131 mg/dL (65-99) H 11/11/18 05:06 POC Glucose (mg/dL) 153 mg/dL (65-99) H 11/11/18 17:06 Calcium 7.4 mg/dL (8.5-10.1) L 11/11/18 05:06 Corrected Calcium 9.1 mg/dL (8.5-10.1) 11/11/18 05:06 Total Bilirubin 0.20 mg/dL (0.2-1.0) 11/11/18 05:06 AST 61 Units/L (15-37) H 11/11/18 05:06 ALT 66 Units/L (12-78) 11/11/18 05:06 Alkaline Phosphatase 126 Units/L (46-116) H 11/11/18 05:06 B-Natriuretic Peptide 113 pg/mL (0-79) H 11/08/18 05:25 Total Protein 5.9 g/dL (6.4-8.2) L 11/11/18 05:06 Albumin 1.9 g/dL (3.4-5.0) L 11/11/18 05:06 Globulin 4.0 g/dL (2.5-4.5) 11/11/18 05:06 Albumin/Globulin Ratio 0.5 Ratio (1.1-2.1) L 11/11/18 05:06 - Plan (1) Acute interstitial pneumonia Status: Acute Plan: IV LEVAQUIN, IV FORTAZ, RESPIRATORY TX, SUPPLEMENTAL OXYGEN, CONTINUE TO MONITOR (2) CKD (chronic kidney disease) stage 4, GFR 15-29 ml/min Status: Acute Plan: 1/2NS AT 75ML/HR, CONTINUE TO MONITOR (3) Herpes simplex type 1 infection Status: Acute Plan: ACYCLOVIR TOPICAL OINTMENT Q6H, CONTINUE TO MONITOR
[2018-11-11] MEDS: KLONOPIN TAB 1 MG PO SCH (20:29)
[2018-11-11] MEDS: SNACK - Diabetic Appropriate PO SCH (20:29)
[2018-11-11] MEDS: LIPITOR TAB 20 MG PO SCH (20:30)
[2018-11-12] MEDS ORDERED: NS 1/2 1000 ML IV 1,000 ML ONE (01:29)
[2018-11-12] MEDS: NS 1/2 1000 ML IV 1,000 ML IV SCH ×2 (01:34→07:06)
[2018-11-12] MEDS: ZOVIRAX TOP SCH ×2 (03:30→09:14)
[2018-11-12 07:11] LABS: BASOPHILS % (AUTO) 0.4 % (0.2-1.0); EOSINOPHILS # (AUTO) 0.3 x10^3/uL (0.0-0.2); EOSINOPHILS % (AUTO) 3.1 % (0.9-2.9); HEMATOCRIT 28.7 % (36.0-47.0); HEMOGLOBIN 9.5 g/dL (12.0-16.0); LYMPHOCYTES # (AUTO) 2.4 X10^3/uL (1.3-2.9); LYMPHOCYTES % (AUTO) 25.8 % (21.0-51.0); MEAN CORPUSCULAR HEMOGLOBIN 29.5 pg (27.0-34.0); MEAN CORPUSCULAR HGB CONC 33.1 g/dL (33.0-35.0); MEAN CORPUSCULAR VOLUME 89.3 fL (80.0-100.0); MEAN PLATELET VOLUME 9.1 fL (7.4-11.0); MONOCYTES # (AUTO) 0.8 x10^3/uL (0.3-0.8); MONOCYTES % (AUTO) 8.6 % (0.0-13.0); NEUTROPHILS # (AUTO) 5.7 x10^3/uL (2.2-4.8); NEUTROPHILS % (AUTO) 62.1 % (42.0-75.0); PLATELET COUNT 268 X10^3/uL (150.0-450.0); RED BLOOD COUNT 3.21 X10^6/uL (3.5-5.4); RED CELL DISTRIBUTION WIDTH 14.1 % (11.6-16.5); WHITE BLOOD COUNT 9.2 X10^3/uL (3.6-10.0)
[2018-11-12 07:14] LABS: ALBUMIN 1.7 g/dL (3.4-5.0); CALCIUM 7.6 mg/dL (8.5-10.1); CARBON DIOXIDE 27.2 mmol/L (21-32); COR CA(FOR HYPOALB) 9.4 mg/dL (8.5-10.1); CREATININE 1.95 mg/dL (0.55-1.02); TOTAL PROTEIN 5.6 g/dL (6.4-8.2)
--- NOTE | 2018-11-12 08:08 | RAD ---
HISTORY: Shortness of breath Study: Chest AP portable Comparison: 11/11/2018 Findings: The heart is within normal limits in size. The abi are normal. The lungs are well inflated and free of acute alveolar infiltrates. No pleural effusions are identified. The bony thorax is unremarkable. IMPRESSION: Lungs clear Reported By:
[2018-11-12] MEDS: LEVAQUIN PREMIX IV 750 MG 750 MG/150 ML BAG IV SCH (09:12)
[2018-11-12] MEDS: PriLOSEC PO SCH (09:13)
[2018-11-12] MEDS: SINGULAIR TAB 10 MG PO SCH (09:14)
[2018-11-12] MEDS: WELLBUTRIN XL 150 MG (DAILY) PO SCH (09:14)
[2018-11-12] MEDS: ROBITUSSIN DM PO SCH (09:14)
[2018-11-12] MEDS: REMERON PO SCH (09:14)
[2018-11-12] MEDS: LOVENOX INJ 100 MG SYR SC SCH (09:14)
[2018-11-12] MEDS: EFFEXOR XR 75 MG CAP PO SCH (09:14)
[2018-11-12] MEDS: PULMICORT NEB TX 0.5 MG NEB SCH (09:39)
[2018-11-12] MEDS: ACCUNEB 1.25 MG NEBULE NEB SCH ×2 (09:39→12:23)
[2018-11-12] MEDS: NIX CREME RINSE EXT SCH (10:41)
[2018-11-12 10:59] VITALS: BP 117/61
[2018-11-12] MEDS: ZOSYN VIAL 3.375 GRAMS 3.375 G in NS 100 ML IV + SPIKE MINIBAG* 100 ML IV SCH (11:25)
== END 2018-11-12 14:30 | disposition home health service (06) | DRG 197 ==
LOC: ER 12:39 → MED/SURG 12:39
PROVIDERS: ADMIT Internal Medicine; ATTEND Internal Medicine
DX: R94.4 Abnormal results of kidney function studies; I12.9 Hypertensive chronic kidney disease with stage 1 through stage 4 chronic kidney disease, or unspecified chronic kidney disease; B00.89 Other herpesviral infection; X58.XXXA Exposure to other specified factors, initial encounter; E78.2 Mixed hyperlipidemia; R26.89 Other abnormalities of gait and mobility; N18.4 Chronic kidney disease, stage 4 (severe); R06.02 Shortness of breath; J84.89 Other specified interstitial pulmonary diseases; M25.571 Pain in right ankle and joints of right foot; D72.828 Other elevated white blood cell count; S82.892A Other fracture of left lower leg, initial encounter for closed fracture; J44.9 Chronic obstructive pulmonary disease, unspecified; R11.2 Nausea with vomiting, unspecified; R42 Dizziness and giddiness; K21.9 Gastro-esophageal reflux disease without esophagitis; B85.0 Pediculosis due to Pediculus humanus capitis; R00.0 Tachycardia, unspecified; E11.65 Type 2 diabetes mellitus with hyperglycemia
CPT/HCPCS: 36415; 36600; 71010; 71045; 73610; 80053; 82803; 83880; 85025; 87040; 87070; 87205; 93306; 94640; 94760; 96365; 96367; 96374; 96375; 97162; 97166; 97530; 97535; 99284; A4222; S0106; G0378; J1650; J1815; J1956; J2543; J2930; J7050; J7613; J7620; J7626